=== PATIENT | male | born 1975 | race African-American/Black ===

== ENCOUNTER 2017-02-14 21:26 | Emergency (ER) | payer SELFPAY ==
[~2017-02-14] VITALS: Ht 188 cm; Wt 99.0 kg
[2017-02-14 22:37] VITALS: BP 141/79
[2017-02-15] MEDS ORDERED: TETANUS, DIPHTHERIA, PERTUSSIS VAC/PF 0.5ML (>7YR OLD) IM ONE (03:00)
[2017-02-15] MEDS ORDERED: LIDOCAINE HCL 1% 20ML VIAL (Pyxis) INJ INFIL ONE (03:00)
== END 2017-02-15 04:32 | disposition home or self-care (01) ==
LOC: ER 21:26
DX: S61.211A Laceration without foreign body of left index finger without damage to nail, initial encounter (principal); W26.0XXA Contact with knife, initial encounter; Y93.89 Activity, other specified; Y92.89 Other specified places as the place of occurrence of the external cause; Z23 Encounter for immunization
CPT/HCPCS: 12001; 90471; 90715; 99283; J3490; Z7610